=== PATIENT | male | born 1980 | race Hispanic/Latino ===

== ENCOUNTER → 2025-10-14 | Outpatient (CLI) | payer OTHER ==
[~2025-10-14] MED LIST: IOHEXOL 350 MG/ML 100ML INFUS..BTL IV ONE
--- NOTE | 2025-10-15 10:26 | HMCIMG ---
EXAM: CT Chest, Abdomen and Pelvis with Intravenous Contrast CLINICAL HISTORY: Malignant neoplasm of the anal canal. TECHNIQUE: Axial computed tomography images of the chest, abdomen and pelvis with intravenous contrast. Dose reduction technique was used including one or more of the following: automated exposure control, adjustment of mA and kV according to patient size, and/or iterative reconstruction. Total exam DLP is 1320.50. Total CTDI volume is 19.3. CONTRAST: With; 99 mL of intravenous contrast has been administered. COMPARISON: None provided. FINDINGS: CHEST: LUNGS: No lung nodules, mass or adenopathy. No focal airspace consolidation. PLEURAL SPACES: No pleural effusion. No pneumothorax. HEART AND MEDIASTINUM: No cardiomegaly. No significant pericardial effusion. LYMPH NODES: No lymphadenopathy. ABDOMEN AND PELVIS: LIVER: The liver is unremarkable. No focal lesions. GALLBLADDER AND BILE DUCTS: Unremarkable. No calcified stone. No ductal dilation. PANCREAS: The pancreas is unremarkable. SPLEEN: The spleen is unremarkable. ADRENAL GLANDS: The adrenal glands are unremarkable. KIDNEYS, URETERS, AND BLADDER: The kidneys are unremarkable. Delayed phase images demonstrate normal contrast excretion into the bilateral renal pelvicalyceal system and ureters without hydroureteronephrosis. No nephrolithiasis. No ureteral or bladder calculi. STOMACH AND BOWEL: There is nodular enhancing thickening of the left side of the inferior part of the anal canal, measuring approximately 2.9 x 1 x 2.9 cm. There is no invasion of the urethra with the urinary bladder. It is involving the left ischiorectal fossa minimally. The distal anal canal mass like thickening is occupying the intersphincteric plane posteriorly at 6 o'clock position. A moderate amount of fecal material is present in the colon. No obstruction. No wall thickening. No CT evidence of colitis or acute diverticulitis. APPENDIX: The appendix is unremarkable, series 2, image 20/147. PERITONEUM: No free fluid. No free air. LYMPH NODES: No intra-abdominal adenopathy. There are no significantly enlarged inguinal lymph nodes. REPRODUCTIVE: The prostate is unremarkable. Other visualized reproductive structures are unremarkable. VASCULATURE: No aortic aneurysm. BONES AND SOFT TISSUES: Sternal foramen is present in the lower half of the sternal body. There are degenerative changes in the spine. No lytic or sclerotic bone lesions. No acute osseous abnormality. The soft tissues are unremarkable. IMPRESSION: 1. Nodular enhancing thickening of the left side of the inferior anal canal measuring approximately 2.9 x 1 x 2.9 cm, minimally involving the left ischiorectal fossa, with mass-like thickening occupying the intersphincteric plane posteriorly at the 6 o'clock position. No urethral or urinary bladder/rectal invasion. This may be neoplastic/inflammatory in nature. Recommend histopathological confirmation. 2. No significantly enlarged inguinal, intra-abdominal or intrapelvic lymph nodes. 3. No intrathoracic mass or adenopathy. /[place]
== END | disposition home or self-care (01) ==
LOC: RAH 10:37
PROVIDERS: ATTEND Surgery
DX: C21.1 Malignant neoplasm of anal canal (principal); M47.817 Spondylosis without myelopathy or radiculopathy, lumbosacral region; M47.814 Spondylosis without myelopathy or radiculopathy, thoracic region
CPT/HCPCS: 71260; 74177; Q9967 ×2

== ENCOUNTER → 2025-10-27 | Outpatient (CLI) | payer OTHER ==
[~2025-10-27] MED LIST changes: +GADOTERATE MEGLUMINE 10 MMOL/20 ML VIAL IV ONE; -IOHEXOL 350 MG/ML 100ML INFUS..BTL IV ONE
--- NOTE | 2025-10-28 09:05 | HMCIMG ---
EXAMINATION: MRI of the Pelvis with and without Intravenous Contrast CLINICAL HISTORY: Neoplasm of the anal canal. TECHNIQUE: Multiplanar, multisequence MRI of the pelvis was performed using T1-weighted, T2-weighted, and STIR sequences in orthogonal planes. Post-contrast fat-suppressed T1-weighted images were obtained in multiple planes following intravenous contrast administration. COMPARISON: Compared with prior CT scan of the chest, abdomen, and pelvis dated October 14, 2025.FINDINGS:Anal Canal / Primary Tumor: There is a nodular, heterogeneously appearing mass arising from the left lateral aspect of the anal canal, extending from approximately the 3 oclock to 6 oclock position. The lesion measures approximately 3.4 1.7 3.0 cm and extends superiorly from the anal verge for a craniocaudal length of approximately 1.7 cm. The mass is hypointense on T1-weighted images and heterogeneously hyperintense on T2-weighted images. It protrudes into the anal canal lumen.Sphincter Complex Involvement: The lesion involves both the internal and external anal sphincters. There is lateral extension into the left ischiorectal fossa and minimal anterior extension into the perineum.Perianal Soft Tissues: Inferiorly, a cystic component of the lesion is present, which opens onto the skin in the left paramedian perianal region, suggesting fistulization or breakdown of a necrotic component.Post-Contrast Enhancement: Following contrast administration, the lesion demonstrates heterogeneous nodular enhancement with central non-enhancing areas, likely representing necrosis or cystic degeneration.Adjacent Organs: No evidence of invasion of the prostate or other adjacent pelvic organs is identified.Lymph Nodes: No enlarged pelvic or inguinal lymph nodes are identified.Osseous Structures: The visualized pelvic bones demonstrate normal marrow signal without evidence of osseous involvement.Interval Change: Compared with the prior CT examination dated October 14, 2025, the left lateral anal canal mass appears grossly stable in size.IMPRESSION: * Left lateral anal canal mass measuring approximately 3.4 1.7 3.0 cm, involving the anal verge with superior extension of approximately 1.7 cm, demonstrating invasion of both the internal and external anal sphincters and extension into the left ischiorectal fossa and minimally into the perineum, highly suspicious for anal canal malignancy. * Inferior cystic component with cutaneous opening in the left paramedian perianal region, suggestive of fistulization or necrotic component. * No evidence of pelvic or inguinal lymphadenopathy and no invasion of adjacent organs, including the prostate. * MRI-based TNM staging (AJCC): Findings are consistent with at least T3 disease due to invasion of the external anal sphincter and ischiorectal fossa, N0, with no distant metastatic disease assessed on this examination (M0 by pelvic MRI). * Grossly stable appearance of the anal canal mass compared with the prior CT study of the chest, abdomen and pelvis dated October 14, 2025. Recommendation: Histopathological confirmation is recommended. Multidisciplinary oncologic consultation is advised for definitive staging correlation and treatment planning. /Street
== END | disposition home or self-care (01) ==
LOC: RAH 13:09 → EDUNIT# 14:00
PROVIDERS: ATTEND Surgery
DX: C21.1 Malignant neoplasm of anal canal (principal)
CPT/HCPCS: 72197; A9575